=== PATIENT | male | born 1985 | race Caucasian/White ===

== ENCOUNTER 2017-07-17 04:18 | Emergency (ER) | payer MEDICAID, OTHER ==
[~2017-07-17] VITALS: Ht 167.6 cm; Wt 75.0 kg
[2017-07-17 04:24] VITALS: Ht 167.6 cm; Wt 75.0 kg
--- NOTE | 2017-07-17 05:11 | RADRPT ---
PROCEDURE: XR Chest. CLINICAL INDICATION: Chest pain TECHNIQUE: A single AP view of the chest was obtained. COMPARISON: None available FINDINGS: Lung volumes are low with compressive changes and crowding of the central pulmonary vascular marking s. No focal airspace opacity, pleural effusion or pneumothorax is seen. The cardiomediastinal silho uette is within normal limits for size. The osseous structures are unremarkable. IMPRESSION: 1. Low lung volumes with compressive changes. 2. Otherwise, unremarkable chest x-ray. RPTAT: HH .Ana Souza MD, MD Date Time Electronically viewed and signed by .Ana Souza MD, on 07/17/2017 05:11 .G/
[2017-07-17] MEDS ORDERED: TRAM50TA2 PO (05:18)
--- NOTE | 2017-07-17 05:18 | ERD ---
ER Documentation Chief Complaint Date/Time DATE: 07/17/17 TIME: 05:14 Chief Complaint chest pain x 1 day HPI 32-year-old male presents to emergency department for complaints of right-sided chest pain that started yesterday. Patient described pain as sharp pain, 6/10 scale, is worse upon taking a deep breath. Patient admits to been lifting weights 2 days ago. Patient denies any shortness of breath. Patient denies any dyspnea on exertion or dyspnea on lying off. Patient denies any dizziness. Patient did not take any medications for pain. ROS All systems reviewed and are negative except as per history of present illness. Medications Home Meds Reported Medications [none] Unknown Strength No Conflict Check 07/17/17 Allergies Allergies: Coded Allergies: No Known Allergy (Unverified , 07/17/17) PMhx/Soc Medical and Surgical Hx: pt denies Medical Hx, pt denies Surgical Hx Hx Alcohol Use: No Hx Substance Use: No Hx Tobacco Use: No Smoking Status: Never smoker FmHx Family History: No coronary disease, No diabetes, No other Physical Exam Vitals Vital Signs Date Time Temp Pulse Resp B/P Pulse Ox O2 Delivery O2 Flow Rate FiO2 07/17/17 04:24 97.8 82 20 140/85 100 Physical Exam GENERAL: The patient is well developed and appropriate for usual state of health, in no apparent distress. CHEST: Clear to auscultation bilaterally. There are no rales, wheezes or rhonchi. Tenderness on palpation in mid chest wall. HEART: Regular rate and rhythm. No murmurs, clicks, rubs or gallops. No S3 or S4. ABDOMEN: Soft, nontender and nondistended. Good bowel sounds. No rebound or guarding. No gross peritonitis. No gross organomegaly or masses. No Courtney sign or McBurney point tenderness. BACK: No midline or flank tenderness. EXTREMITIES: Equal pulses bilaterally. There is no peripheral clubbing, cyanosis or edema. No focal swelling or erythema. Full range of motion. Grossly neurovascularly intact. NEURO: Alert and oriented. Cranial nerves 2-12 intact. Motor strength in all 4 extremities with 5/5 strength. Sensation grossly intact. Normal speech and gait. SKIN: There is no apparent rash or petechia. The skin is warm and dry. HEMATOLOGIC AND LYMPHATIC: There is no evidence of excessive bruising or lymphedema. No gross cervical, axillary, or inguinal lymphadenopathy. Results 24 hrs EKG was done, read by me and is normal sinus rhythm at a rate of 80 with incomplete right bundle branch block normal axis, there is no ST changes or changes in the EKG that indicates any cardiac emergencies at this time. Patient' s EKG was also reviewed by Dr. Casey. Impression: no acute findings on EKG PROCEDURE: XR Chest. CLINICAL INDICATION: Chest pain TECHNIQUE: A single AP view of the chest was obtained. COMPARISON: None available FINDINGS: Lung volumes are low with compressive changes and crowding of the central pulmonary vascular markings. No focal airspace opacity, pleural effusion or pneumothorax is seen. The cardiomediastinal silhouette is within normal limits for size. The osseous structures are unremarkable. IMPRESSION: 1. Low lung volumes with compressive changes. 2. Otherwise, unremarkable chest x-ray. RPTAT: HH .Ana Souza MD, MD Date Time Electronically viewed and signed by .Ana Souza MD, MD on 07/17/2017 05 :11 .G/ CC: DASHA ARCE CLINICAL LABORATORY SCIENCE PROFESSOR Procedures/MDM Medical Decision Making: Patient symptoms are most likely consistent of chest wall pain, possible chest wall strain. There is low suspicion for cardiopulmonary emergencies at this time. Patient has low risk factors. EKG is normal, there is no changes in the EKG that indicates cardiac emergencies. Chest X-ray does not show cardiopulmonary emergencies at this time. There is low suspicion for aortic aneurysm, myocardial infarction, pneumothorax, pleural effusion, pulmonary embolism, or any other cardiopulmonary emergencies at this time.. Patient was advised to follow-up with primary care doctor in 2-3 days for further evaluation and symptoms, possibly a marketing communications specialist if chest pain continues to persist. Patient was advised to avoid lifting weights. Perfusion was given for ibuprofen for pain, tramadol for severe pain.. Patient was advised to return to emergency department for any worsening symptoms Dispostion: Home. Stable Departure Diagnosis: Primary Impression: Atypical chest pain Condition: Stable Patient Instructions: Chest Pain, Uncertain Cause Additional Instructions: Patient was advised to follow-up with primary care doctor in 2-3 days for further evaluation and symptoms, possibly a marketing communications specialist if chest pain continues to persist. DASHA ARCE NP Jul 17, 2017 05:18
[2017-07-17] MEDS ORDERED: IBUP-1542 PO (05:19)
[2017-07-17 05:27] VITALS: BP 134/83; PULSE 77; RESP 18
== END 2017-07-17 06:06 | disposition home or self-care (01) ==
LOC: FTE 04:18
DX: R07.89 Other chest pain (principal)
CPT/HCPCS: 71010; 93005; Z7502